=== PATIENT | male | born 1990 | race Caucasian/White ===

== ENCOUNTER 2017-05-02 08:21 | Emergency (ER) | payer BC ==
[~2017-05-02] VITALS: Ht 177.8 cm; Wt 102.1 kg
[~2017-05-02 08:21] MED LIST: CYCL10TA29 PO; IBUP600T22 PO; PRED50TA22 PO
[2017-05-02 11:00] VITALS: BP 145/97
--- NOTE | 2017-05-02 11:08 | RADIOLOGY IMAGING REPORT ---
[place] [facility] [place]: Karson Rayo : 1990 MR: [id number] V: [id number] EXAM DATE: ORDERING PHYSICIAN: TITI ALCALA TECHNOLOGIST: Location: [facility] Patient: Karson Rayo : 1990 Visit/Account:[id number] Date of Sevice: 05/02/2017 Exam type: XR CHEST 2VIEWS History: Cough and fever x7 days nonsmoker Comparison: None. Findings: The lungs are free of acute effusions, infiltrates or edema. Cardiac silhouette is normal in size. The trachea is in midline. IMPRESSION: 1. No acute cardiopulmonary process is seen Report Dictated By: Merary Iverson MD at 05/02/2017 10:55 AM Report E-Signed By: Merary Iverson MD at 05/02/2017 10:57 AM WSN:[id number]
== END 2017-05-02 11:41 | disposition home or self-care (01) ==
LOC: ER 10:18
DX: J06.9 Acute upper respiratory infection, unspecified (principal); M54.32 Sciatica, left side
CPT/HCPCS: 71046; 99284